=== PATIENT | female | born 1955 | race Caucasian/White ===

== ENCOUNTER 2024-02-26 07:53 | Emergency (ER) | payer OTHER, SELFPAY ==
[2024-02-26 07:56] VITALS: BP 174/75
[2024-02-26 08:34] LABS: % Basophils 0.3 % (0-2); % Immature Granulocytes 0.8 % (0-0.5); % Lymphocytes 3.2 % (20.5-51.1); % Monocytes 10.4 % (1.7-9.3); % Neutrophils 85.3 % (42.2-75.2); Absolute Immature Granulocytes 0.1 10^3/uL (0-0.05); Absolute Lymphocytes 0.3 10^3/uL (1.2-3.4); Absolute Monocytes 0.9 10^3/uL (0.1-0.6); Absolute Neutrophils 7.4 10^3/uL (1.4-6.5); Hematocrit 42.5 % (37.0-47.0); Hemoglobin 14.7 g/dL (12.0-16.0); Mean Corp Hgb Conc. 34.6 g/dL (33.0-37.0); Mean Corpuscular Hgb 31.5 pg (27.0-31.0); Mean Corpuscular Volume 91.2 fL (81.0-99.0); Mean Platelet Volume 10.5 fL (7.4-10.4); Nucleated Red Blood Cells % 0 %; Platelet Count 183 10^3/uL (130-400); Red Blood Cell Count 4.66 10^6/uL (4.20-5.40); Red Cell Dist. Width 11.8 % (11.5-14.5); White Blood Cell Count 8.7 10^3/uL (4.8-10.8)
--- NOTE | 2024-02-26 08:45 | ED.GENMED ---
History of Present Illness
General
Chief Complaint: Fever
Source: patient and spouse
Exam Limitations: none
Time Seen by Provider: 02/26/24 08:28
Nursing documentation reviewed up to this point in time: agreed with
History of Present Illness
History of Present Illness:
69 yo female presents to the emergency department c/o weakness, chills and fatigue. She did not take her temperature at home. She started Macrobid for a UTI 2 days ago. She has not seen her physician for this. She also complains of a headache.
Past History
Past History
ED Past Medical History: Arrthythmia (on toprol/pradaxa), GERD, HTN, NIDDM, Psychiatric (PTSD) and Other (renal stones)
ED Past Surgical History: Cardiac (ablation '), Cholecystectomy, and Gynecological (uterine ablation)
Social History
Tobacco: Former smoker
Alcohol: None
Drug: None
Personal:
Living: with family
Employment: Not employed
Family History
Family History: CAD
Review of Systems
Review of Systems
Allergies reviewed?: Yes
All Other Systems: Not applicable
Constitutional: Reports fatigue and chills
EENT: Reports no symptoms
Respiratory: Reports no symptoms
Cardiac: Reports no symptoms
ABD/GI: Reports no symptoms
: Reports no symptoms
Musculoskeletal: Reports muscle pain
Skin: Reports no symptoms
Neurological: Reports dizzy
Endocrine: Reports no symptoms
Hematologic/Lymphatic: Reports no symptoms
Psychiatric: Reports no symptoms
Phy Exam
Physical Exam
Physical Exam:
Physical Exam
General: Temperature 100.0
Neck: supple. no meningeal signs. normal posterior pharynx
Heart: s1/s2 regular rate and rhythm, no murmur. equal radial
pulses.
HEENT: Pupils equal round reactive to light, EOMI
Lungs: no acute respiratory distress. clear bilaterally
Abdomen: normal bowel sounds. not tender. no CVAT
Neuro: alert and oriented. no focal neurological deficits cranial nerves II through XII intact
Skin: no rash
Psychiatric: well kept. interactive and cooperative
Extremities: no edema. no calf tenderness. negative homans. good distal pulses
Course
Orders/Labs/Results
Orders:
Orders
02/26/24 08:28
COVID-19 Antigen Urgent
Source: Nasal Swab
Complete Blood Count/With Diff Urgent
Influenza A+B Rapid Molecular Urgent
RENETTA Source: Nasal Swab
Specimen Description:
02/26/24 08:46
Add On- LAB Urgent
Tests Added?: magnesium
CT Head W/o Iv Contrast Urgent
Comment:
Reason For Exam: headache
02/26/24 08:49
IV Insert/Care/Rem.- Treatment PRN
02/26/24 08:57
Electrocardiogram (*1) Stat
Reason for Study: Atrial Fibrillation
EKG- Treatment ONCE
02/26/24 09:49
Comprehensive Metabolic Panel Urgent
Magnesium Urgent
02/26/24 09:51
Urinalysis Reflex To Culture Urgent
Date Specimen was Collected: 02/26/24
Time Specimen was Collected: 09:50
Urine Microscopic Reflex Cult Urgent
Urine Culture Urgent
RENETTA Source: U
Specimen Description:
Date Specimen was Collected: 02/26/24
Time Specimen was Collected: 09:50
02/26/24 11:36
Magnesium Sulfate 1 grams 0.9% Sodium Chloride 100 ml [Nss] 100 ml IV NOW
02/26/24 12:50
Cephalexin Monohydrate [Keflex] 500 mg PO NOW STA
Abnormal Lab Results
02/26/24 02/26/24 02/26/24
08:28 09:49 09:51
MCH 31.5 H pg
(27.0-31.0)
MPV 10.5 H fL
(7.4-10.4)
Abs Immat Gran (auto) 0.1 H 10^3/uL
(0-0.05)
Absolute Neuts (auto) 7.4 H 10^3/uL
(1.4-6.5)
Absolute Lymphs (auto) 0.3 L 10^3/uL
(1.2-3.4)
Absolute Monos (auto) 0.9 H 10^3/uL
(0.1-0.6)
Immature Gran % 0.8 H %
(0-0.5)
Neutrophils % 85.3 H %
(42.2-75.2)
Lymphocytes % 3.2 L %
(20.5-51.1)
Monocytes % 10.4 H %
(1.7-9.3)
Glucose 165 H mg/dl
(70-99)
Magnesium 1.5 L mg/dl
(1.6-2.3)
AST 37 H U/L
(14-36)
Urine Ketones 2+ A
(Negative)
Ur Occult Blood Reflex 1+ A
(Negative)
Leukocyte Esterase Rfl 2+ A
(Negative)
Urine RBC 3-6 A /HPF
(0-2)
Urine WBC (Reflex) 11-15 A /HPF
(0-5)
Urine Bacteria (Reflex) Few A
(Negative)
02/26/24 08:28
02/26/24 09:49
Vital Signs
Initial and Last Documented VS:
Initial Vital Signs
Temp Pulse Resp BP Pulse Ox
100.0 F 79 18 174/75 95
02/26/24 07:56 02/26/24 07:56 02/26/24 07:56 02/26/24 07:56 02/26/24 07:56
Last Documented Vital Signs
Temp Pulse Resp BP Pulse Ox
99.0 F 73 22 146/62 94
02/26/24 09:56 02/26/24 09:56 02/26/24 09:56 02/26/24 09:56 02/26/24 09:56
MDM/Problems Addressed
Differential Diagnosis Includes:
UTI, viral illness
MDM/Problems Addressed:
69-year-old female with UTI, temperature 100.0. Normal head CT. Symptoms likely from UTI and virus. Patient stable for discharge. Mild hypomagnesemia, repleted in ED.
Chronic conditions affecting care: HTN and Arrhythmia
Acute Exacerbation and/or Progression of Chronic Illness: HTN and Arrhythmia
*Radiology
Radiology exam reviewed: radiology read reviewed (head ct nad)
*Pulse Oximetry
Patient hypoxic: no
*EKG
Interpreted by ED Provider?: Yes
EKG Intrepretation Date: 02/26/24
EKG Intrepretation Time: 09:13
Interpretation: normal
Comparison EKG: changes noted
Heart Rate: 75
Rate: normal
Rhythm: sinus
[place]: normal axis
Interval: normal interval
QRS Pattern: normal QRS
Ischemia: no ischemia
*Him Coder Interpretation
Rate: normal
Interpretation: normal
Heart Rate: 72
Rhythm: sinus
*Critical Care Note
Total Time (30-74mins, 75-104mins- exclusive of procedures): Not Applicable
Patient Management
Social determinants of health affecting care: Living situation
Escalation/DeEscalation of care consider admission/obs:
admit not indicated
ED Attending Note
-
Portions of this chart may have been created with voice recognition software.� Occasional wrong word or��sound alike� substitutions may have occurred due to the inherent limitations of voice recognition software.
Discharge Plan
Departure
Patient Disposition: Home (Routine Discharge)
Date of Disposition: 02/26/24
Time of Disposition: 12:53
Patient with high blood pressure during this ER visit?: Yes
Condition: Good
Discharge Problem:
UTI (urinary tract infection), Hypomagnesemia
Instructions: Urinary tract infections in adults, Fever, Adult (DC), Viral Syndrome (DC), BLOOD PRESSURE
Prescriptions:
New
cephalexin 500 mg capsule
500 mg PO BID 7 Days Qty: 14 0RF
No Action
losartan 50 MG tablet
100 mg PO DAILY
glipizide [Glipizide XL] 5 MG tablet extended release 24hr
2.5 mg PO DAILY
alprazolam 0.25 MG tablet
0.25 mg PO BID PRN (Reason: anxiety)
dabigatran etexilate [Pradaxa] 150 MG capsule
150 mg PO BID
Famotidine
40 mg PO BID
metoprolol tartrate 50 MG tablet
100 mg PO BID
atorvastatin 40 MG tablet
40 mg PO QPM Qty: 30 11RF
nitroglycerin 0.4 MG tablet, sublingual
0.4 mg sublingual DAILYPRN PRN (Reason: chest pain) Qty: 25 0RF
Rx Instructions:
1 tab SL as needed for CP, may repeat every 5 minutes for maximum of 3 tablets
aspirin [Adult Low Dose Aspirin] 81 MG tablet,delayed release (DR/EC)
81 mg PO DAILY Qty: 100 0RF
meclizine 25 mg tablet
25 mg PO TID PRN (Reason: dizziness) Qty: 10 0RF
Referrals:
Tai Macias MD [Family Provider] -
Interventions
Interventions:
*Risk Screen - Suicide Last Done: 02/26/24 07:56
*General Assessment Last Done: 02/26/24 07:56
*Neglect/Abuse Screening Last Done: 02/26/24 07:56
ED- Cardiac Assessment Last Done: 02/26/24 08:58
ED- Neurological Assessment Last Done: 02/26/24 08:58
ED- Pulmonary Assessment Last Done: 02/26/24 08:58
ED-Skin Assessment Last Done: 02/26/24 08:58
Discharge Date and Time
Print Language: AMHARIC
[2024-02-26 08:59] LABS: COVID-19 Antigen Negative (Negative)
[2024-02-26 09:56] VITALS: BP 146/62
[2024-02-26 10:04] LABS: Urine Albumin Trace (Neg - Trace); Urine Bilirubin Negative (Negative); Urine Character Clear (Clear); Urine Color Amber; Urine Glucose Negative (Negative); Urine Ketone 2+ (Negative); Urine Leukocyte 2+ (Negative); Urine Nitrite Negative (Negative); Urine Occult Blood 1+ (Negative); Urine Specific Gravity 1.015 (<1.030); Urine Urobilinogen 1+ (Neg - 1+)
[2024-02-26 10:14] LABS: Urine Mucus Few; Urine Urothelial Cell 16-20 /LPF (FEW)
[2024-02-26 10:15] LABS: Urine Bacteria Few (Negative); Urine Hyaline Cast 0-2 /LPF (0-2)
[2024-02-26 10:34] LABS: ALT (SGPT) 33 U/L (0-35); AST (SGOT) 37 U/L (14-36); Albumin 4.1 g/dl (3.5-5.0); Alkaline Phosphatase 100 U/L (38-126); Blood Urea Nitrogen 15 mg/dl (7-17); Calcium 9.2 mg/dl (8.4-10.2); Carbon Dioxide 22 mmol/L (22-30); Chloride 101 mmol/L (98-107); Glucose 165 mg/dl (70-99); Magnesium 1.5 mg/dl (1.6-2.3); Potassium 4.2 mmol/L (3.5-5.1); Sodium 137 mmol/L (135-145); Total Bilirubin 0.9 mg/dl (0.2-1.3); Total Protein 6.8 g/dl (6.3-8.2); eGFR > 60.00
[2024-02-26 11:20] VITALS: BP 129/84
[2024-02-26] MEDS: MAGNESIUM SULFATE 102 GRAMS IV (11:56)
[2024-02-26 13:00] VITALS: BP 134/76
[2024-02-26] MEDS: KEFLEX 500 MG PO (13:03)
== END 2024-02-26 13:11 | disposition home or self-care (01) ==
LOC: EMR 07:53
PROVIDERS: EMERGENCY PHYSICIAN Emergency Medicine; FAMILY PHYSICIAN Family Medicine
DX: N39.0 Urinary tract infection, site not specified (principal); E83.42 Hypomagnesemia; R42 Dizziness and giddiness; M79.10 Myalgia, unspecified site; R53.83 Other fatigue; R53.1 Weakness; R51.9 Headache, unspecified; Z11.52 Encounter for screening for COVID-19; E11.9 Type 2 diabetes mellitus without complications; I10 Essential (primary) hypertension; I48.91 Unspecified atrial fibrillation; M19.90 Unspecified osteoarthritis, unspecified site; K21.9 Gastro-esophageal reflux disease without esophagitis; F43.10 Post-traumatic stress disorder, unspecified; F41.9 Anxiety disorder, unspecified; F32.A Depression, unspecified; B02.9 Zoster without complications; Z79.82 Long term (current) use of aspirin; Z79.84 Long term (current) use of oral hypoglycemic drugs; Z87.442 Personal history of urinary calculi; Z87.891 Personal history of nicotine dependence; Z90.49 Acquired absence of other specified parts of digestive tract; Z88.5 Allergy status to narcotic agent; Z88.8 Allergy status to other drugs, medicaments and biological substances; Z88.1 Allergy status to other antibiotic agents; Z91.040 Latex allergy status
CPT/HCPCS: 99284; 96374; 70450; 80053; 81003; 81015; 83735; 85025; 87086; 87502; 87811; 93005